=== PATIENT | female | born 1955 ===

== ENCOUNTER → 2018-07-20 22:03 | Outpatient (REF) | payer OTHER, SELFPAY ==
[2018-07-20 23:45] LABS: Ferritin 35.6 ng/mL (11.1-264)
[2018-07-21 01:27] LABS: Free T3, Triiodothyronine Free 3.81 pg/mL (2.77-5.27); Free T4, Direct Thyroxine 1.63 ng/dL (0.78-2.19)
[2018-07-21 01:40] LABS: Thyroid Stimulating Hormone 0.58 uIU/mL (0.47-4.68)
[2018-07-23 14:04] LABS: EBV Virus IgM Ab < 36.00 U/mL (< 36.00)
[2018-07-24 14:33] LABS: Anti Thyroglobulin Antibody 2 IU/mL (< 2); Thyroid Peroxidase Antibodies 1 IU/mL (< 9)
== END ==
LOC: LAB 22:03
PROVIDERS: Visit Provider Acupuncturist
DX: B27.00 Gammaherpesviral mononucleosis without complication (principal)
CPT/HCPCS: 82728; 84439; 84443; 84481; 86376; 86663; 86664; 86665; 86800